=== PATIENT | female | born 1950 | race African-American/Black ===

== ENCOUNTER → 2018-05-19 | Outpatient (CLI) | payer OTHER | LOC: FIMAGING 10:18 | PROVIDERS: ATTEND Internal Medicine | DX: Z13.820 Encounter for screening for osteoporosis (principal); M81.0 Age-related osteoporosis without current pathological fracture; Z78.0 Asymptomatic menopausal state ==

== ENCOUNTER → 2018-08-07 | Outpatient (CLI) | payer OTHER | LOC: CIMAGING 15:38 | PROVIDERS: ATTEND Emergency Medicine | DX: R05 Cough (principal); R91.8 Other nonspecific abnormal finding of lung field | CPT/HCPCS: 71046-PO ==

== ENCOUNTER → 2018-08-15 | Outpatient (CLI) | payer OTHER | LOC: CIMAGING 11:21 | PROVIDERS: ATTEND Internal Medicine | DX: J40 Bronchitis, not specified as acute or chronic (principal); R91.1 Solitary pulmonary nodule | CPT/HCPCS: 71046-PO ==

== ENCOUNTER → 2018-09-15 | Outpatient (CLI) | payer OTHER | LOC: CIMAGING 10:30 | PROVIDERS: ATTEND Internal Medicine | DX: D86.9 Sarcoidosis, unspecified (principal); J40 Bronchitis, not specified as acute or chronic; R05 Cough; R09.02 Hypoxemia | CPT/HCPCS: 71046-PO ==